=== PATIENT | male | born 1990 | race Caucasian/White ===

== ENCOUNTER 2022-04-30 22:16 | Emergency (ER) | payer OTHER, SELFPAY ==
--- NOTE | ~2022-04-30 | CT_ITS ---
EXAMINATION: CT ABDOMEN AND PELVIS WITHOUT CONTRAST CLINICAL INFORMATION: Left flank pain. COMPARISON: None TECHNIQUE: Multidetector volumetric imaging was performed from the superior aspect of the liver through the pubic symphysis. Sagittal and coronal reformatted images were obtained on the technologist's workstation. This CT examination was performed using dose optimization techniques as appropriate, variously including the following: *Automated exposure control *Adjustment of mA and/or kV according to patient size (this includes techniques or standardized protocols for targeted exams where dose is matched to indication/reason for exam; i.e. extremities or head) *Use of iterative reconstruction technique DLP: 637 mGy-cm FINDINGS: LUNG BASES: The visualized lung bases are unremarkable. LIVER, GALLBLADDER, AND BILIARY TREE: The liver is normal in size, shape, and attenuation. There is a subcentimeter cyst in hepatic segment 8, benign. No biliary ductal dilatation is present. The gallbladder is unremarkable with no evidence of radiopaque gallstones, gallbladder wall thickening, or obvious pericholecystic inflammatory changes. PANCREAS: Unremarkable. SPLEEN: Unremarkable. ADRENAL GLANDS: Unremarkable. KIDNEYS AND URETERS: The kidneys are normal in size, shape, and attenuation. No hydronephrosis or hydroureter. Numerous bilateral nonobstructive intrarenal calculi number at least 7 within the left kidney and 13 within the right kidney ranging in size from punctate to 3 mm. Minimal proximal left periureteral fat stranding, and possibly peripelvic fat stranding. BLADDER: Unremarkable. GASTROINTESTINAL TRACT: The small and large bowel are unremarkable. The appendix is unremarkable. ABDOMINAL WALL: No significant hernia is appreciated. LYMPH NODES: Normal. VASCULAR: Unremarkable. PELVIC VISCERA: Unremarkable. OSSEOUS STRUCTURES: Unremarkable. CT/CT abdomen pelvis wo IV con IMPRESSION: * Bilateral nonobstructive intrarenal calculi. * No ureteral calculi or hydronephrosis. * Mild left peripelvic and proximal periureteral fat stranding. Consider the possibility of a recently passed stone on the left, or pyelonephritis. Otherwise, no potential etiology for the patient's left flank pain is evident. Please correlate with urinalysis.
[2022-04-30 22:23] VITALS: BP 151/111; PULSE 106; RESP 18; TEMP 36.6; O2SAT 96; BMI 26.6
[2022-04-30 23:24] LABS: Appearance Urine Clear; Color Urine Yellow; Glucose Urine UA Negative (Negative); Leukocyte Esterase Urine Negative (Negative); Nitrite Urine Negative (Negative); Urine Blood Negative (Negative); Urine Ketones Negative (Negative); Urine Protein Negative (Neg-Trace)
[2022-05-01 00:01] LABS: Basophils Absolute Auto 0.1 X10*3/uL (0.0-0.2); Basophils Percent Auto 0.4 % (0-2); Eosinophils Absolute Auto 0.1 X10*3/uL (0.0-0.4); Eosinophils Percent Auto 0.9 % (0-4); Hematocrit 43.7 % (42.0-52.0); Hemoglobin 15.6 g/dl (14.0-18.0); Imm Gran Abs Auto 0.06 X10*3/uL (0.00-0.03); Imm Gran Pct Auto 0.4 % (0.0-0.4); Lymphocytes Absolute Auto 5.4 X10*3/uL (1.2-4.9); Lymphocytes Percent Auto 39.4 % (20-40); MANUAL DIFF FLAG SCAN; Mean Corpuscular HGB Conc 35.7 g/dl (31.0-36.0); Mean Corpuscular Hemoglobin 30.6 pg (27.0-33.0); Mean Corpuscular Volume 85.7 fL (80.0-98.0); Mean Platelet Volume 9.7 fL (9.4-12.4); Monocytes Absolute Auto 0.8 X10*3/uL (0.1-1.2); Monocytes Percent Auto 5.7 % (2-11); Neutrophils Absolute Auto 7.3 x10*3/uL (2.0-8.3); Neutrophils Percent Auto 53.2 % (45-73); Platelet Count 296 X10*3/uL (160-400); Red Cell Distribution Width 11.7 % (11.0-16.0); SCAN SMEAR FLAG 1; White Blood Count 13.8 X10*3/uL (4.8-10.8)
--- NOTE | 2022-05-01 00:07 | PC.NURSE ---
20g placed in LAC, for anticipation of CT scan/ medications
[2022-05-01 00:23] LABS: SLIDE REVIEW VERIFIED
[2022-05-01 00:48] LABS: Alanine Aminotransferase 24 U/L (0-40); Albumin Level 3.9 g/dL (3.5-5.0); Alkaline Phosphatase 75 U/L (39-117); Anion Gap 15 (12-20); Aspartate Amino Transferase 17 U/L (5-37); Bilirubin Total 0.5 mg/dL (0.0-1.0); Blood Urea Nitrogen 13 mg/dL (9-16); Calcium 9.1 mg/dL (8.4-10.2); Carbon Dioxide 20 mmol/L (22-29); Chloride 106 mmol/L (96-108); Creatinine Clr Calc Pharmacy 113.9; Estimated Glomerular Filt Rate > 60; Glucose Random 84 mg/dL (60-115); Potassium 3.9 mmol/L (3.3-5.1); Sodium 137 mmol/L (135-145); Total Protein 6.4 g/dL (6.5-8.0)
[2022-05-01] MEDS: Lactated Ringers 1,000 ML 999 ML IV ×2 (00:57→00:58)
[2022-05-01] MEDS: Morphine Sulfate 4 MG/ML CARTRIDGE IVPUSH (00:58)
[2022-05-01] MEDS: Ketorolac Tromethamine 30 MG/ML VIAL IVPUSH (00:58)
--- NOTE | 2022-05-01 00:58 | ED.GENADULT ---
HPI - General Adult General Chief complaint: Abdominal Pain <IGNACIO Duarte Last Filed: 05/01/22 18:07> Stated complaint: ? Kidney Stones <IGNACIO Duarte Last Filed: 05/01/22 18:07> Time Seen by Provider: 05/01/22 00:45 <IGNACIO Duarte Last Filed: 05/01/22 18:07> Source: patient <IGNACIO Duarte Last Filed: 05/01/22 18:07> Mode of arrival: ambulatory <IGNACIO Duarte Last Filed: 05/01/22 18:07> Limitations: no limitations <IGNACIO Duarte Last Filed: 05/01/22 18:07> History of Present Illness HPI narrative: 32 yold male with past medical history of kidney stones presents to ED for left flank pain starting today. Patient denies any dysuria, hematuria, nausea vomiting. Patient states no fever chills. Patient denies any recent trauma. <IGNACIO Duarte Last Filed: 05/01/22 18:07> Related Data Home medications: Previous Rx's Medication Instructions Recorded naproxen 500 mg tablet 500 mg PO BID PRN pain 7 days #14 05/01/22 tabs oxycodone 5 mg capsule 5 mg PO TID PRN pain 3 days #9 caps 05/01/22 <IGNACIO Duarte Last Filed: 05/01/22 18:07> Allergies/adverse reactions: Allergies Allergy/AdvReac Type Severity Reaction Status Date / Time No Known Allergies Allergy Verified 05/01/22 00:49 <IGNACIO Duarte Last Filed: 05/01/22 18:07> Review of Systems Review of Systems: Left flank pain <IGNACIO Duarte Last Filed: 05/01/22 18:07> Yes all other systems are reviewed and are negative <IGNACIO Duarte Last Filed: 05/01/22 18:07> [facility] Social History Social History: Social History Advance Directives: No Advance Directives Information Provided: No <IGNACIO Duarte Last Filed: 05/01/22 18:07> Physical Exam ED Vital Signs: Vital Signs - 24 hr 04/30/22 22:23 Temperature 97.9 F Pulse Rate 106 H Respiratory Rate 18 Blood Pressure 151/111 H Pulse Oximetry 96 Oxygen Delivery Method Room Air BMI result Body Mass Index 26.6 <IGNACIO Duarte Last Filed: 05/01/22 18:07> Vital Signs - 24 hr 04/30/22 22:23 Temperature 97.9 F Pulse Rate 106 H Respiratory Rate 18 Blood Pressure 151/111 H Pulse Oximetry 96 Oxygen Delivery Method Room Air BMI result Body Mass Index 26.6 <Marek Membreno MD - Last Filed: 05/01/22 02:43> Const General: cooperative, healthy appearing, comfortable, no acute distress, well developed, alert, awake and Physically active <IGNACIO Duarte Last Filed: 05/01/22 18:07> Orientation/consciousness: oriented to person, oriented to place, oriented to time and patient oriented x3 <IGNACIO Duarte - Last Filed: 05/01/22 18:07> HENMT Head: Yes normal to inspection, Yes No palpable skull fracture present, Yes normocephalic, Yes atraumatic and No abrasion <IGNACIO Duarte Last Filed: 05/01/22 18:07> Eyes General: appearance normal, both eyes and all related structures <IGNACIO Duarte Last Filed: 05/01/22 18:07> Neck Neck: Yes normal visual inspection, Yes full ROM, Yes no lymphadenopathy, Yes no meningeal signs, Yes trachea midline, Yes supple, No anterior neck swelling and No tender <IGNACIO Duarte Last Filed: 05/01/22 18:07> Chest Chest palpation & inspection: normal inspection of the chest and normal palpation of entire chest wall <IGNACIO Duarte Last Filed: 05/01/22 18:07> Resp Effort & Inspection: normal respiratory effort and able to speak in complete sentences <IGNACIO Duarte Last Filed: 05/01/22 18:07> Auscultation: clear to auscultation bilaterally <IGNACIO Duarte Last Filed: 05/01/22 18:07> Cardio Jugular venous distension: no JVD <IGNACIO Duarte Last Filed: 05/01/22 18:07> Heart sounds: S1 normal heart sound present and S2 normal heart sound present <IGNACIO Duarte Last Filed: 05/01/22 18:07> GI Inspection: Yes normal to inspection, No abdominal wall ecchymosis and No Kehr's sign positive <IGNACIO Duarte Last Filed: 05/01/22 18:07> Palpation (GI): Soft to palpation, not firm, nontender, no guarding and not rigid <IGNACIO Duarte - Last Filed: 05/01/22 18:07> General: Yes CVA tenderness (left) <IGNACIO Duarte Last Filed: 05/01/22 18:07> Back/Spine/Pelvis Back: CVA tenderness (left) <IGNACIO Duarte - Last Filed: 05/01/22 18:07> Skin General skin exam: no rashes or lesions noted and elasticity normal <IGNACIO Duarte - Last Filed: 05/01/22 18:07> Neuro General: oriented to person, oriented to place, oriented to time, patient oriented x3, gait normal, tone normal, moves all extremities, Normal light touch and pain sensation, no meningeal signs, no focal motor deficits, CN's II-XI intact bilaterally and normal sensation to monofilament <IGNACIO Duarte Last Filed: 05/01/22 18:07> Extrem General: Yes normal to inspection and Yes full ROM <IGNACIO Duarte Last Filed: 05/01/22 18:07> Psych Appearance: grossly normal, well kempt and not disheveled <IGNACIO Duarte Last Filed: 05/01/22 18:07> Course Course Course Narrative: Labs, pain medication, fluids, abdominal CT scan ordered <IGNACIO Duarte Last Filed: 05/01/22 18:07> Reevaluation(s) Reevaluation #1: Negative elevated white blood cell count. UA negative for blood or urinary tract infection. Chemistry kidney functions normal. CT scan shows stranding of the ureter which radiologist states possible recently passed stone. Patient feel better after pain meds. Patient will be discharged with pain medication. <IGNACIO Duarte Last Filed: 05/01/22 18:07> Time: 02:09 <IGNACIO Duarte Last Filed: 05/01/22 18:07> Medications Administered Discontinued Medications Generic Name Dose Route Start Last Admin Trade Name Freq PRN Reason Stop Dose Admin Lactated Ringer's 1,000 mls @ 999 mls/hr 05/01/22 00:49 05/01/22 02:19 Lr IV 05/01/22 01:49 Infused .Q1H1M STA Infusion Lactated Ringer's 1,000 mls @ 999 mls/hr 05/01/22 01:00 05/01/22 02:19 Lr IV 05/01/22 02:00 Infused .Q1H1M SOLITARIO Infusion Ketorolac Tromethamine 30 mg 05/01/22 00:49 05/01/22 00:58 Ketorolac Tromethamine 30 Mg/Ml Vial IVPUSH 05/01/22 00:50 30 mg ONCE ONE Administration Morphine Sulfate 4 mg 05/01/22 00:49 05/01/22 00:58 Morphine Sulfate 4 Mg/Ml Cartridge IVPUSH 05/01/22 00:50 4 mg ONCE ONE Administration Protocol <IGNACIO Duarte - Last Filed: 05/01/22 18:07> Medications Administered Discontinued Medications Generic Name Dose Route Start Last Admin Trade Name Freq PRN Reason Stop Dose Admin Lactated Ringer's 1,000 mls @ 999 mls/hr 05/01/22 00:49 05/01/22 02:19 Lr IV 05/01/22 01:49 Infused .Q1H1M STA Infusion Lactated Ringer's 1,000 mls @ 999 mls/hr 05/01/22 01:00 05/01/22 02:19 Lr IV 05/01/22 02:00 Infused .Q1H1M SOLITARIO Infusion Ketorolac Tromethamine 30 mg 05/01/22 00:49 05/01/22 00:58 Ketorolac Tromethamine 30 Mg/Ml Vial IVPUSH 05/01/22 00:50 30 mg ONCE ONE Administration Morphine Sulfate 4 mg 05/01/22 00:49 05/01/22 00:58 Morphine Sulfate 4 Mg/Ml Cartridge IVPUSH 05/01/22 00:50 4 mg ONCE ONE Administration Protocol <Marek Membreno MD - Last Filed: 05/01/22 02:43> Medical Decision Making Medical Decision Making MDM Narrative: 32-year-old male presents to ED for left leg pain with history of kidney stones. Patient given IV fluids and pain med <IGNACIO Duarte - Last Filed: 05/01/22 18:07> Differential Diagnosis Differential Diagnoses: The differential diagnosis associated with the presentation includes (Kidney stones. Pyelonephritis.) <IGNACIO Duarte - Last Filed: 05/01/22 18:07> Lab Data MDM Lab Attestation statement: I reviewed the patient's lab results. <IGNACIO Duarte - Last Filed: 05/01/22 18:07> Result Diagrams: 04/30/22 23:55 04/30/22 23:55 <IGNACIO Duarte - Last Filed: 05/01/22 18:07> Labs: Lab Results 04/30/22 04/30/22 04/30/22 Range/Units 23:04 23:55 23:55 WBC 13.8 H (4.8-10.8) X10*3/uL RBC 5.10 (4.60-5.80) X10*6/uL Hgb 15.6 (14.0-18.0) g/dl Hct 43.7 (42.0-52.0) % MCV 85.7 (80.0-98.0) fL MCH 30.6 (27.0-33.0) pg MCHC 35.7 (31.0-36.0) g/dl RDW 11.7 (11.0-16.0) % Plt Count 296 (160-400) X10*3/uL MPV 9.7 (9.4-12.4) fL Immature Gran % (Auto) 0.4 (0.0-0.4) % Neut % (Auto) 53.2 (45-73) % Lymph % (Auto) 39.4 (20-40) % [place] % (Auto) 5.7 (2-11) % Eos % (Auto) 0.9 (0-4) % Baso % (Auto) 0.4 (0-2) % Lymph # (Auto) 5.4 H (1.2-4.9) X10*3/uL [place] # (Auto) 0.8 (0.1-1.2) X10*3/uL Eos # (Auto) 0.1 (0.0-0.4) X10*3/uL Baso # (Auto) 0.1 (0.0-0.2) X10*3/uL Abs Immat Gran (auto) 0.06 H (0.00-0.03) X10*3/uL Absolute Neuts (auto) 7.3 (2.0-8.3) x10*3/uL Absolute Nucleated RBC 0.000 (0.0-0.012) X10*3/uL Nucleated RBC % (auto) 0.0 (0.0-0.2) /100WBC Smear Tech's Comments VERIFIED Sodium 137 (135-145) mmol/L Potassium 3.9 (3.3-5.1) mmol/L Chloride 106 (96-108) mmol/L Carbon Dioxide 20 L (22-29) mmol/L Anion Gap 15 (12-20) BUN 13 (9-16) mg/dL Creatinine 0.87 (0.5-1.4) mg/dL Estim Creat Clear Calc 113.9 Estimated GFR > 60 Random Glucose 84 (60-115) mg/dL Calcium 9.1 (8.4-10.2) mg/dL Total Bilirubin 0.5 (0.0-1.0) mg/dL AST 17 (5-37) U/L ALT 24 (0-40) U/L Alkaline Phosphatase 75 (39-117) U/L Total Protein 6.4 L (6.5-8.0) g/dL Albumin 3.9 (3.5-5.0) g/dL Urine Color Yellow Urine Appearance Clear Urine pH 6.0 (5.0-9.0) Ur Specific [place] 1.010 (1.005-1.025) Urine Protein Negative (Neg-Trace) mg/dL Urine Glucose (UA) Negative (Negative) mg/dL Urine Ketones Negative (Negative) mg/dL Urine Blood Negative (Negative) Urine Nitrite Negative (Negative) Ur Leukocyte Esterase Negative (Negative) <IGNACIO Duarte - Last Filed: 05/01/22 18:07> Lab Results 04/30/22 04/30/22 04/30/22 Range/Units 23:04 23:55 23:55 WBC 13.8 H (4.8-10.8) X10*3/uL RBC 5.10 (4.60-5.80) X10*6/uL Hgb 15.6 (14.0-18.0) g/dl Hct 43.7 (42.0-52.0) % MCV 85.7 (80.0-98.0) fL MCH 30.6 (27.0-33.0) pg MCHC 35.7 (31.0-36.0) g/dl RDW 11.7 (11.0-16.0) % Plt Count 296 (160-400) X10*3/uL MPV 9.7 (9.4-12.4) fL Immature Gran % (Auto) 0.4 (0.0-0.4) % Neut % (Auto) 53.2 (45-73) % Lymph % (Auto) 39.4 (20-40) % [place] % (Auto) 5.7 (2-11) % Eos % (Auto) 0.9 (0-4) % Baso % (Auto) 0.4 (0-2) % Lymph # (Auto) 5.4 H (1.2-4.9) X10*3/uL [place] # (Auto) 0.8 (0.1-1.2) X10*3/uL Eos # (Auto) 0.1 (0.0-0.4) X10*3/uL Baso # (Auto) 0.1 (0.0-0.2) X10*3/uL Abs Immat Gran (auto) 0.06 H (0.00-0.03) X10*3/uL Absolute Neuts (auto) 7.3 (2.0-8.3) x10*3/uL Absolute Nucleated RBC 0.000 (0.0-0.012) X10*3/uL Nucleated RBC % (auto) 0.0 (0.0-0.2) /100WBC Smear Tech's Comments VERIFIED Sodium 137 (135-145) mmol/L Potassium 3.9 (3.3-5.1) mmol/L Chloride 106 (96-108) mmol/L Carbon Dioxide 20 L (22-29) mmol/L Anion Gap 15 (12-20) BUN 13 (9-16) mg/dL Creatinine 0.87 (0.5-1.4) mg/dL Estim Creat Clear Calc 113.9 Estimated GFR > 60 Random Glucose 84 (60-115) mg/dL Calcium 9.1 (8.4-10.2) mg/dL Total Bilirubin 0.5 (0.0-1.0) mg/dL AST 17 (5-37) U/L ALT 24 (0-40) U/L Alkaline Phosphatase 75 (39-117) U/L Total Protein 6.4 L (6.5-8.0) g/dL Albumin 3.9 (3.5-5.0) g/dL Urine Color Yellow Urine Appearance Clear Urine pH 6.0 (5.0-9.0) Ur Specific [place] 1.010 (1.005-1.025) Urine Protein Negative (Neg-Trace) mg/dL Urine Glucose (UA) Negative (Negative) mg/dL Urine Ketones Negative (Negative) mg/dL Urine Blood Negative (Negative) Urine Nitrite Negative (Negative) Ur Leukocyte Esterase Negative (Negative) <Marek Membreno MD - Last Filed: 05/01/22 02:43> Independent Interpretation I performed an independent interpretation of an: CT Scan <IGNACIO Duarte - Last Filed: 05/01/22 18:07> Radiology Impression Discussion of test interpretation with radiology: I have reviewed the radiologist's reading. <IGNACIO Duarte - Last Filed: 05/01/22 18:07> Prescription Management I considered prescription management with: Pain Medication (Oxycodone/Tylenol) <IGNACIO Duarte - Last Filed: 05/01/22 18:07> Attestation Attending Attestation: I reviewed PROCESS MAINTENANCE TECHNICIAN/PA/Resident note, assessment and plan. I agree with the documentation, assessment and plan unless otherwise stated. <Marek Membreno MD - Last Filed: 05/01/22 02:43> Discharge Plan Discharge Clinical Impression: Acute left flank pain, Calculus of kidney <IGNACIO Duarte - Last Filed: 05/01/22 18:07> Patient Disposition: Home, Self-Care <IGNACIO Duarte - Last Filed: 05/01/22 18:07> Instructions: Kidney Stones (ED), Flank Pain (ED) <IGNACIO Duarte - Last Filed: 05/01/22 18:07> Additional Instructions: Your blood work and urine came back fine. Your CT scan showed that you passed a stone. Please follow-up with your primary care provider. You will be discharged with pain medication. Return to the ED for nausea, vomiting, worsening flank pain, fever, chills, hematuria, dysuria, testicular pain, worsening abdominal pain, or any other concerning symptoms. <IGNACIO Duarte - Last Filed: 05/01/22 18:07> Prescriptions: New oxycodone 5 mg capsule 5 mg PO TID PRN (Reason: pain) 3 Days Qty: 9 0RF Rx Instructions: Partial Fill upon patient request. naproxen 500 mg tablet 500 mg PO BID PRN (Reason: pain) 7 Days Qty: 14 0RF <IGNACIO Duarte - Last Filed: 05/01/22 18:07> Referrals: [facility] [Provider Group] (passed stone) <IGNACIO Duarte - Last Filed: 05/01/22 18:07> Stand Alone Forms: Work/School Release <IGNACIO Duarte - Last Filed: 05/01/22 18:07> Interventions: ED Discharge Assessment Last Done: 05/01/22 02:27 <IGNACIO Duarte - Last Filed: 05/01/22 18:07> Discharge Date/Time: 05/01/22 02:28 <IGNACIO Duarte - Last Filed: 05/01/22 18:07> Print Language: Nepali <IGNACIO Duarte - Last Filed: 05/01/22 18:07>
== END 2022-05-01 02:28 | disposition home or self-care (01) ==
PROVIDERS: Emergency Provider Emergency Medicine
DX: N20.0 Calculus of kidney (principal); R10.9 Unspecified abdominal pain
CPT/HCPCS: 36415; 74176; 80053; 81003; 85025; 96361; 96374; 96375; 99283; 99284; J1885; J2270